=== PATIENT | female | born 2000 | race Caucasian/White ===

== ENCOUNTER 2023-01-30 10:24 | Outpatient (CLI) | payer OTHER, SELFPAY ==
[2023-01-30 16:23] LABS: Chlamydia DNA Amplified* NOT DETECTED (No Detected); GC DNA Amplified* NOT DETECTED (No Detected)
== END 2023-01-30 10:25 | disposition home or self-care (01) ==
LOC: LKVREF 10:25
PROVIDERS: PCP Physician Assistant Medical; Visit Provider Physician Assistant Medical
DX: Z00.00 Encounter for general adult medical examination without abnormal findings (principal); Z11.3 Encounter for screening for infections with a predominantly sexual mode of transmission
CPT/HCPCS: 87491; 87591

== ENCOUNTER 2023-02-02 09:49 | Outpatient (CLI) | payer OTHER, SELFPAY | END 2023-02-02 09:50 | disposition home or self-care (01) | LOC: NFLDREF 02-03 07:53 | PROVIDERS: PCP Physician Assistant Medical; Referring Provider Physician Assistant Medical; Visit Provider Physician Assistant Medical | DX: Z00.00 Encounter for general adult medical examination without abnormal findings (principal); F41.9 Anxiety disorder, unspecified; Z13.0 Encounter for screening for diseases of the blood and blood-forming organs and certain disorders involving the immune mechanism; Z13.6 Encounter for screening for cardiovascular disorders | CPT/HCPCS: 80048; 80061 ==

== ENCOUNTER 2023-07-12 07:45 | Outpatient (CLI) | payer OTHER, SELFPAY ==
--- NOTE | 2023-07-12 08:00 | CRLHL7_ITS ---
For Patients: As a result of the Century Cures Act, medical imaging exams and procedure reports are released immediately into your electronic medical record. You may view this report before your referring provider. If you have questions, please contact your health care provider. INDICATION: Abnormal findings. TECHNIQUE: 3D [id number]-dk-[id number] magnetic resonance angiography of the head with 3D MIP reconstructions provided. No diffusion abnormalities. COMPARISON: None. FINDINGS: No proximal large vessel occlusion. The anterior cerebral arteries are patent. The middle cerebral arteries are patent. The posterior cerebral arteries are patent. The intradural vertebral arteries and basilar artery are patent. The intracranial internal carotid arteries are patent. Apparent blind-ending vessel along the superior aspect of the right M1 MCA with several associated tiny tributary branches, likely a prominent lenticulostriate arterial trunk. There is a left PCOM infundibulum. No high flow vascular malformation. No evidence of acute ischemia on the acquired diffusion sequence. IMPRESSION: IMPRESSION 1. Major intracranial arteries are patent. 2. Apparent blind-ending vessel along the superior aspect of the right M1 MCA with several associated tiny tributary branches. This is favored to reflect a prominent lenticulostriate trunk. Consider follow-up CTA in 6-12 months time to re-evaluate for stability. 3. There is a left PCOM infundibulum. Dictated by Isaiah Aggarwal MD @ 07/12/2023 11:10:39 AM (Electronically Signed)
== END 2023-07-12 07:46 | disposition home or self-care (01) ==
LOC: MRI 07:46
PROVIDERS: PCP Physician Assistant Medical; Visit Provider Physician Assistant Medical
DX: R93.89 Abnormal findings on diagnostic imaging of other specified body structures (principal)
CPT/HCPCS: 70544

== ENCOUNTER 2024-02-19 09:15 | Outpatient (CLI) | payer OTHER, SELFPAY ==
[2024-02-19 14:24] LABS: Chlamydia DNA Amplified* NOT DETECTED (No Detected); GC DNA Amplified* NOT DETECTED (No Detected)
== END 2024-02-19 09:16 | disposition home or self-care (01) ==
LOC: LKVREF 09:15
PROVIDERS: PCP Physician Assistant Medical; Visit Provider Physician Assistant Medical
DX: Z00.00 Encounter for general adult medical examination without abnormal findings (principal); Z11.3 Encounter for screening for infections with a predominantly sexual mode of transmission
CPT/HCPCS: 87491; 87591

== ENCOUNTER 2025-02-27 13:57 | Outpatient (CLI) | payer OTHER, SELFPAY ==
[2025-02-27 23:21] LABS: Chlamydia DNA Amplified* NOT DETECTED (No Detected); GC DNA Amplified* NOT DETECTED (No Detected)
== END 2025-02-27 13:58 | disposition home or self-care (01) ==
LOC: LKVREF 13:57
PROVIDERS: PCP Physician Assistant Medical; Visit Provider Physician Assistant Medical
DX: L70.9 Acne, unspecified (principal); F41.9 Anxiety disorder, unspecified; G43.909 Migraine, unspecified, not intractable, without status migrainosus
CPT/HCPCS: 87491; 87591